=== PATIENT | female | born 1925 | race Caucasian/White ===

== ENCOUNTER → 2016-05-19 | Outpatient (CLI) | payer MEDICARE, MEDICAID ==
[~2016-05-19] MED LIST: ANTIFUNGAL1% TP; AZO-CRANBERRY450 MG PO; CARDI-OMEGA1000 MG PO; CHLORHEXIDINE480 M1 PO; CIPRO 250MG TA250 MG PO; CLARITIN EYE 5 M5 ML OP; COLACE-T100 MG PO; DETROL LA 4MG4 MG PO; ERYTHROMYCIN E3.5 GM OP; FERRATE325 MG PO; FUROSEMIDE40 MG; ICY HOT TP; KENALOG0.1% TP; LASIX20 MG PO; LEVAQUIN 5500 MG/TA1 PO; LEXAPRO20 MG PO; LOPRESSOR50 MG PO; MACROBID 1100 MG/CAP PO; MACRODANTIN50 MG/CA1 PO; MILK OF MA400 MG/51 PO; MIRALAX 17GM PK1 PKT PO; MIRALAX17 GM PO; MONUROL 3 GM3 G/PKT PO; MULTI VITAMINS1 TAB PO; NORCO 325 MG-51 TAB PO; OSCAL 500MG/VI500 MG PO; OYSTER CALCIUM500 M1 PO; PATADAY 2.5 ML2.5 ML; PATADAY 2.5 ML2.5 ML OP; POTASSIUM CHLO10 ME7 PO; PREMARIN V0.625 MG/G VG; PREMARIN VAG42.5 GM VG; ROBITUSSIN DM 105 ML PO; SANCTURA20 MG PO; ST. JOSEPH81 M2 PO; SYNTHROID0.05 MG PO; SYNTHROID0.088 MG PO; SYNTHROID0.1 MG PO; SYSTANE 3%-94%1 OIN OP; TOPCARE PAIN R325 MG PO; TUMS500 MG PO; TYLENOL 650MG650 M2 PO; ZADITOR5 ML OP; [UNRECOGNIZED DRUG - OTHER] TP
== END ==
LOC: LAB 14:18
DX: E03.4 Atrophy of thyroid (acquired) (principal); R53.81 Other malaise; M25.551 Pain in right hip; M16.0 Bilateral primary osteoarthritis of hip

== ENCOUNTER → 2016-05-25 | Outpatient (CLI) | payer MEDICARE, MEDICAID | LOC: RAD 07:00 | DX: M25.851 Other specified joint disorders, right hip (principal) ==

== ENCOUNTER 2016-07-04 13:26 | Emergency (ER) | payer MEDICARE, MEDICAID ==
[~2016-07-04 13:26] MED LIST changes: -FUROSEMIDE40 MG; -MIRALAX17 GM PO; -POTASSIUM CHLO10 ME7 PO; -SYNTHROID0.05 MG PO; -ZADITOR5 ML OP
[2016-07-04] MEDS ORDERED: ZADITOR5 ML OP (14:38)
[2016-07-04] MEDS ORDERED: SYNTHROID0.05 MG PO (14:43)
[2016-07-04] MEDS ORDERED: FUROSEMIDE40 MG (14:44)
[2016-07-04] MEDS ORDERED: POTASSIUM CHLO10 ME7 PO (14:44)
[2016-07-04] MEDS ORDERED: MIRALAX17 GM PO (14:45)
[2016-07-04 19:59] VITALS: BP 134/60
== END 2016-07-04 20:15 | disposition home or self-care (01) ==
LOC: ED 13:26
DX: K59.00 Constipation, unspecified (principal); M47.9 Spondylosis, unspecified
CPT/HCPCS: J1885; J7030

== ENCOUNTER 2016-07-06 11:28 | Observation (INO) | payer MEDICARE, MEDICAID ==
[~2016-07-06] VITALS: Ht 162.6 cm; Wt 51.6 kg
[~2016-07-06 11:28] MED LIST changes: +FUROSEMIDE40 MG; +MIRALAX17 GM PO; +POTASSIUM CHLO10 ME7 PO; +SYNTHROID0.05 MG PO; +ZADITOR5 ML OP
[2016-07-06 17:08] VITALS: BP 121/61
[2016-07-06 17:11] VITALS: BP 121/61
[2016-07-06 23:13] VITALS: BP 123/77
[2016-07-07 02:46] VITALS: BP 126/80
[2016-07-07 06:52] VITALS: BP 129/70
[2016-07-07 11:00] VITALS: BP 116/63
[2016-07-07 15:00] VITALS: BP 120/72
[2016-07-07 18:04] VITALS: BP 105/55
[2016-07-07 23:07] VITALS: BP 119/62
[2016-07-08 02:49] VITALS: BP 121/68
[2016-07-08 06:23] VITALS: BP 110/55; BP 111/65
[2016-07-08 08:51] VITALS: BP 111/65
== END 2016-07-08 12:58 | disposition home or self-care (01) ==
LOC: ED 11:28 → MED/SURG 16:28
PROVIDERS: ADMIT Nurse Practitioner Primary Care
DX: R10.9 Unspecified abdominal pain (principal); K59.00 Constipation, unspecified; E11.8 Type 2 diabetes mellitus with unspecified complications; I10 Essential (primary) hypertension; E03.9 Hypothyroidism, unspecified; F03.90 Unspecified dementia, unspecified severity, without behavioral disturbance, psychotic disturbance, mood disturbance, and anxiety; Z79.82 Long term (current) use of aspirin; Z79.899 Other long term (current) drug therapy; R53.83 Other fatigue; D64.9 Anemia, unspecified; K44.9 Diaphragmatic hernia without obstruction or gangrene; E11.9 Type 2 diabetes mellitus without complications; R63.0 Anorexia
CPT/HCPCS: G0378; J1650; J2270; J7030; Q9967

== ENCOUNTER → 2017-03-04 | Outpatient (CLI) | payer MEDICARE, MEDICAID ==
[2017-03-04 09:04] LABS: URINE APPEARANCE CLEAR; URINE BILIRUBIN NEGATIVE (NEGATIVE); URINE BLOOD NEGATIVE (NEGATIVE); URINE COLOR YELLOW; URINE GLUCOSE NEGATIVE (NEGATIVE); URINE KETONE NEGATIVE (NEGATIVE); URINE LEUKOCYTE ESTERASE TRACE (NEGATIVE); URINE MUCUS PRESENT (NOT PRESENT); URINE NITRATE NEGATIVE (NEGATIVE); URINE PROTEIN(semi-quant) NEGATIVE (NEGATIVE); URINE UROBILINOGEN NORMAL (NORMAL)
== END ==
LOC: LAB 08:08
PROVIDERS: Nurse Practitioner Family
DX: N32.89 Other specified disorders of bladder (principal); N39.0 Urinary tract infection, site not specified; Z88.1 Allergy status to other antibiotic agents; Z88.8 Allergy status to other drugs, medicaments and biological substances